=== PATIENT | male | born 1975 | race Caucasian/White ===

== ENCOUNTER 2023-06-21 09:31 | Outpatient (AMB) | payer OTHER, SELFPAY ==
--- NOTE | 2023-06-21 11:31 | MHC.OFFWIV ---
Intake Vital Signs 06/21/23 11:33 Weight 232 lb BP 120/80 Blood Pressure Location Rt brachial Position Sitting Pulse 90 Pulse Source Pulse Oximeter Pulse Oximetry (%) 97 Oxygen Delivery Method Room Air Intake Visit Reasons: EP, right hand, left foot swelling ([phone]) Intake Note: Patient here because he was stung by multple yellow jackets and now has swelling on right hand and left foot. Patient Tobacco Use Status: Never used Tobacco Allergies No Known Allergies Allergy (Verified 06/21/23 11:33) Do you need a note to return to daycare/school/sports/work: No HPI EP, right hand, left foot swelling ([phone]) HPI Details 47-year-old male presents to the office for a sick visit. Patient was stung by yellow jackets 2 nights ago. Continues to have a persisting rash in itching in the right hand and the left ankle. Patient has tried [id number] medications including Benadryl and cortisone spray with no relief. [facility] Social History Patient Tobacco Use Status: Never used Tobacco Physical Exam Vital Signs: Last Vital Signs Pulse 90 06/21/23 11:33 BP 120/80 06/21/23 11:33 Pulse Ox 97 06/21/23 11:33 Oxygen Delivery Method Room Air 06/21/23 11:33 Const General: cooperative and healthy appearing Nutritional Appearance: well nourished Orientation/consciousness: patient oriented x3 Limitations: no limitations HEENT Head: Yes normal to inspection Eyes General: appearance normal, both eyes and all related structures Neck Neck: Yes normal visual inspection Chest Chest palpation & inspection: normal palpation of entire chest wall Resp Effort & Inspection: normal respiratory effort Skin Other: Erythematous in slight swelling in the right hand between the webspace of the thumb and index finger. Similar rash over the right ankle. Neuro General: patient oriented x3 Assessment & Plan Assessment & Plan (1) Bee sting allergy: Code(s): Z91.030 - Bee allergy status Plan: Apply ice to the affected area. Prednisone called in. If symptoms do not improve to follow-up here. Medications: New prednisone 60 mg (3 x 20 mg) PO DAILY 9 tabs 0RF Coding Level of Care Code Est Pt Level 3 (10442) Diagnoses Bee sting allergy Z91.030
[2023-06-21 11:33] VITALS: BP 120/80; PULSE 90; O2SAT 97
== END 2023-06-21 12:01 | disposition home or self-care (01) ==
PROVIDERS: Visit Provider Internal Medicine
DX: Z91.030 Bee allergy status (principal)
CPT/HCPCS: 99213